=== PATIENT | female | born 1945 | race Caucasian/White ===

== ENCOUNTER → 2016-07-29 | Outpatient (REF) | payer MEDICARE, OTHER ==
[2016-07-29 11:57] LABS: ALBUMIN 3.5 GM/DL (3.2-5.2); ALBUMIN/GLOBULIN RATIO 1.09 (1.00-1.93); ALKALINE PHOSPHATASE 100 U/L (45-117); ALT/SGPT 20 U/L (12-78); ANION GAP 11 MEQ/L (8-16); AST/SGOT 19 U/L (15-37); BILIRUBIN,TOTAL 0.5 MG/DL (0.2-1.0); BLOOD UREA NITROGEN 12 MG/DL (7-18); CALCIUM LEVEL 8.8 MG/DL (8.8-10.2); CARBON DIOXIDE LEVEL 28 MEQ/L (21-32); CHLORIDE LEVEL 108 MEQ/L (98-107); CREATININE FOR GFR 0.68 MG/DL (0.55-1.02); GLOMERULAR FILTRATION RATE > 60.0 (>39); GLUCOSE, FASTING 92 MG/DL (83-110); POTASSIUM SERUM 4.5 MEQ/L (3.5-5.1); SODIUM LEVEL 147 MEQ/L (136-145); TOTAL PROTEIN 6.7 GM/DL (6.4-8.2)
== END ==
LOC: M SFHCPLAZ 09:12
PROVIDERS: ATTEND Internal Medicine
DX: J30.9 Allergic rhinitis, unspecified (principal); Z85.820 Personal history of malignant melanoma of skin

== ENCOUNTER → 2016-11-06 | Outpatient (CLI) | payer MEDICARE, OTHER ==
--- NOTE | 2016-11-06 13:14 | REPMRS ---
Patient History The patient states she has not had a clinical breast exam in over a year. Patient is postmenopausal, has history of cancer in the right breast at age 52, and has history of multiple skin cancers. Family history of breast cancer in paternal aunt and breast cancer in maternal grandmother at age 70. Malignant lumpectomy of the right breast, 1998. Radiation therapy of the right breast, 1998. Digital Woman Screen Mammo: November 06, 2016 - Exam #: [id number] Bilateral CC and MLO view(s) were taken. Technologist: Hayley Diaz, Technologist Prior study comparison: November 01, 2015, bilateral digital mammo screening bilat, performed at [facility]. October 17, 2014, bilateral digital mammo screening bilat, performed at [facility]. FINDINGS: The breast tissue is heterogeneously dense. This may lower the sensitivity of mammography. There has been no change in the appearance of the mammogram from the prior studies. There is a moderate amount of residual fibroglandular tissue which is fairly symmetric. There is no interval development of dominant mass, areas of architectural distortion, or clustered microcalcification typical of malignancy. ASSESSMENT: BI-RADS/ACR category 1 mammogram. Negative. Recommendation Routine screening mammogram in 1 year (for women over age 40). This mammogram was interpreted with the aid of an FDA-approved computer-aided dectection system. Electronically Signed By: Denys Rojas MD 11/06/16 1411
--- NOTE | 2016-11-12 15:21 | DEXA ---
AP SPINE L1 - L4 1.116 -0.6 1.1 LT FEMUR TOTAL 0.779 -1.8 -0.3 RT FEMUR TOTAL 0.834 -1.4 0.1 TOTAL BODY TOTAL OTHER DUAL FEMUR FRAX* ASSESSMENT Risk factors: History of adult fracture. 10 year probability of fracture Major osteoporotic fracture 16.7 % Hip fracture 2.7 % COMMENTS: Normal bone densitometry of the spine. There is low bone density of hips. The decreased density of the spine does represent a significant change. The decreased density of the left hip does represent a significant change. The decreased density of the right hip does represent a significant change. The density of the spine has increased 1.8% since the initial exam on 2000. The spine density has decreased 5.7% since the most recent exam on 06/10/2013. The density of the left hip has decreased 13.0% since the initial exam on 2000. The density of the left hip has decreased 5.6% since the most recent exam on . The density of the right hip has decreased 5.7% since the initial exam on 2000. The density of the right hip has decreased 2.7% since the most recent exam on . FOLLOW-UP: Recommendation for the next bone density exam: 2 years. GAVIN
== END ==
LOC: M WHC 10:43
PROVIDERS: ATTEND Internal Medicine
DX: Z12.31 Encounter for screening mammogram for malignant neoplasm of breast (principal); Z87.81 Personal history of (healed) traumatic fracture; Z85.3 Personal history of malignant neoplasm of breast; M85.80 Other specified disorders of bone density and structure, unspecified site; Z78.0 Asymptomatic menopausal state; Z80.3 Family history of malignant neoplasm of breast; Z92.3 Personal history of irradiation; Z85.828 Personal history of other malignant neoplasm of skin; Z13.820 Encounter for screening for osteoporosis
CPT/HCPCS: 77080; G0202

== ENCOUNTER → 2017-01-28 | Outpatient (REF) | payer MEDICARE, OTHER ==
[2017-01-28 11:18] LABS: MEAN CORPUSCULAR HGB CONC 32.9 g/dl (32.0-36.5); MEAN CORPUSCULAR VOLUME 94.2 fl (80.0-96.0); RED CELL DISTRIBUTION WIDTH 12.3 % (11.5-14.5)
[2017-01-28 11:45] LABS: ALBUMIN 3.7 GM/DL (3.2-5.2); ALBUMIN/GLOBULIN RATIO 1.09 (1.00-1.93); ALKALINE PHOSPHATASE 98 U/L (45-117); ALT/SGPT 29 U/L (12-78); ANION GAP 7 MEQ/L (8-16); AST/SGOT 16 U/L (15-37); BILIRUBIN,TOTAL 0.7 MG/DL (0.2-1.0); BLOOD UREA NITROGEN 9 MG/DL (7-18); CALCIUM LEVEL 9.2 MG/DL (8.8-10.2); CARBON DIOXIDE LEVEL 30 MEQ/L (21-32); CHLORIDE LEVEL 106 MEQ/L (98-107); CHOLESTEROL LEVEL 195 MG/DL (<200); GLOMERULAR FILTRATION RATE > 60.0 (>39); GLUCOSE, FASTING 84 MG/DL (83-110); POTASSIUM SERUM 4.4 MEQ/L (3.5-5.1); SODIUM LEVEL 143 MEQ/L (136-145); TOTAL PROTEIN 7.1 GM/DL (6.4-8.2); TRIGLYCERIDES LEVEL 129 MG/DL (<150)
== END ==
LOC: M SFHCPLAZ 08:48
PROVIDERS: ATTEND Internal Medicine
DX: Z85.3 Personal history of malignant neoplasm of breast (principal); E78.00 Pure hypercholesterolemia, unspecified; Z87.81 Personal history of (healed) traumatic fracture

== ENCOUNTER → 2017-02-10 | Outpatient (CLI) | payer MEDICARE, OTHER ==
--- NOTE | 2017-02-10 10:46 | REP ---
Complete abdominal ultrasound: There is a negative Casey's sign to transducer pressure. There is no cholelithiasis, gallbladder wall thickening or pericholecystic fluid. There is no intrahepatic or extrahepatic biliary duct dilatation, the common duct measures 4.3 mm in diameter. The hepatic parenchyma is homogeneous and unremarkable. The pancreas is obscured by bowel gas. The spleen is homogeneous and normal size measuring 8.1 cm in length. Occasional small calcified granulomas are identified in the spleen. There is no right or left renal hydronephrosis. The kidneys are normal size right kidney measuring 10 point 0 cm length and the left kidney 10.3 cm length. There are no renal calculi, masses or cysts. There are linear echogenic foci near the renal viviana bilaterally compatible with calcified atheroma. There is no abdominal aortic aneurysm. There is no ascites. Impression: Occasional splenic calcified granulomas. Calcified atheroma in the renal viviana bilaterally. Otherwise, negative complete abdominal ultrasound. Signed by Denys Jacobo MD 02/10/2017 10:37 A
== END ==
LOC: M RAD 07:20
PROVIDERS: ATTEND Internal Medicine
DX: R10.9 Unspecified abdominal pain (principal)

== ENCOUNTER → 2017-07-04 | Outpatient (REF) | payer MEDICARE, OTHER ==
[2017-07-04 12:58] LABS: ALBUMIN/GLOBULIN RATIO 1.14 (1.00-1.93); ALKALINE PHOSPHATASE 108 U/L (45-117); ALT/SGPT 26 U/L (12-78); ANION GAP 8 MEQ/L (8-16); AST/SGOT 21 U/L (7-37); BILIRUBIN,TOTAL 0.7 MG/DL (0.2-1.0); BLOOD UREA NITROGEN 9 MG/DL (7-18); CALCIUM LEVEL 9.3 MG/DL (8.8-10.2); CARBON DIOXIDE LEVEL 27 MEQ/L (21-32); CHLORIDE LEVEL 106 MEQ/L (98-107); CREATININE FOR GFR 0.69 MG/DL (0.55-1.30); GLOMERULAR FILTRATION RATE > 60.0 (>39); GLUCOSE, FASTING 85 MG/DL (70-100); MAGNESIUM LEVEL 2.5 MG/DL (1.8-2.4); POTASSIUM SERUM 4.5 MEQ/L (3.5-5.1); SODIUM LEVEL 141 MEQ/L (136-145); TOTAL PROTEIN 7.5 GM/DL (6.4-8.2)
== END ==
LOC: M SFHCPLAZ 09:18
DX: Z85.3 Personal history of malignant neoplasm of breast (principal); Z85.820 Personal history of malignant melanoma of skin; K21.9 Gastro-esophageal reflux disease without esophagitis; M85.80 Other specified disorders of bone density and structure, unspecified site
CPT/HCPCS: 83735

== ENCOUNTER → 2018-01-05 | Outpatient (REF) | payer MEDICARE, OTHER ==
[2018-01-05 12:34] LABS: ALBUMIN 3.7 GM/DL (3.2-5.2); ALBUMIN/GLOBULIN RATIO 1.09 (1.00-1.93); ALKALINE PHOSPHATASE 106 U/L (45-117); ALT/SGPT 30 U/L (12-78); ANION GAP 9 MEQ/L (8-16); AST/SGOT 18 U/L (7-37); BILIRUBIN,TOTAL 0.5 MG/DL (0.2-1.0); BLOOD UREA NITROGEN 10 MG/DL (7-18); CALCIUM LEVEL 8.9 MG/DL (8.8-10.2); CARBON DIOXIDE LEVEL 28 MEQ/L (21-32); CHLORIDE LEVEL 107 MEQ/L (98-107); CHOLESTEROL LEVEL 178 MG/DL (<200); CHOLESTEROL RISK RATIO 2.966 (<5); CREATININE FOR GFR 0.75 MG/DL (0.55-1.30); GLOMERULAR FILTRATION RATE > 60.0 (>39); GLUCOSE, FASTING 86 MG/DL (70-100); HDL CHOLESTEROL 60 MG/DL (>40); LDL CHOLESTEROL 98.6 MG/DL (<100); NON-HDL-C 118 MG/DL; POTASSIUM SERUM 4.3 MEQ/L (3.5-5.1); SODIUM LEVEL 144 MEQ/L (136-145); TOTAL PROTEIN 7.1 GM/DL (6.4-8.2); TRIGLYCERIDES LEVEL 97 MG/DL (<150)
== END ==
LOC: M SFHCPLAZ 08:40
DX: E78.00 Pure hypercholesterolemia, unspecified (principal); Z85.3 Personal history of malignant neoplasm of breast; Z85.820 Personal history of malignant melanoma of skin
CPT/HCPCS: 80053

== ENCOUNTER → 2018-02-06 | Outpatient (CLI) | payer MEDICARE, OTHER | LOC: M RAD 09:17 | DX: Z12.31 Encounter for screening mammogram for malignant neoplasm of breast (principal); N60.31 Fibrosclerosis of right breast; N60.32 Fibrosclerosis of left breast; R92.1 Mammographic calcification found on diagnostic imaging of breast | CPT/HCPCS: 77067 ==

== ENCOUNTER → 2019-01-21 | Outpatient (REF) | payer MEDICARE, OTHER ==
[2019-01-21 13:37] LABS: ALBUMIN 3.6 GM/DL (3.2-5.2); ALT/SGPT 22 U/L (12-78); BILIRUBIN,TOTAL 0.5 MG/DL (0.2-1.0); BLOOD UREA NITROGEN 11 MG/DL (7-18); CALCIUM LEVEL 9.5 MG/DL (8.8-10.2); CARBON DIOXIDE LEVEL 29 MEQ/L (21-32); CHLORIDE LEVEL 107 MEQ/L (98-107); CHOLESTEROL LEVEL 177 MG/DL (<200); CHOLESTEROL RISK RATIO 3.277 (<5); CREATININE FOR GFR 0.72 MG/DL (0.55-1.30); GLOMERULAR FILTRATION RATE > 60.0 (>39); GLUCOSE, FASTING 93 MG/DL (70-100); HDL CHOLESTEROL 54 MG/DL (>40); LDL CHOLESTEROL 101 MG/DL (<100); MAGNESIUM LEVEL 2.3 MG/DL (1.8-2.4); NON-HDL-C 123 MG/DL; POTASSIUM SERUM 4.2 MEQ/L (3.5-5.1); SODIUM LEVEL 142 MEQ/L (136-145); TOTAL 25(OH) VITAMIN D 42.6 NG/ML (30.0-100.0); TOTAL PROTEIN 6.7 GM/DL (6.4-8.2); TRIGLYCERIDES LEVEL 112 MG/DL (<150)
== END ==
LOC: M SFHCPLAZ 08:41
PROVIDERS: ATTEND Internal Medicine
DX: E78.00 Pure hypercholesterolemia, unspecified (principal); K21.9 Gastro-esophageal reflux disease without esophagitis; M85.80 Other specified disorders of bone density and structure, unspecified site

== ENCOUNTER → 2019-02-15 | Outpatient (CLI) | payer MEDICARE, OTHER ==
--- NOTE | 2019-02-15 10:52 | REPMRS ---
Patient History The patient states she has not had a clinical breast exam in over a year. Family history of breast cancer at age 70 in maternal grandmother, breast cancer in paternal aunt. Malignant lumpectomy of the right breast, 1998. Radiation therapy of the right breast, 1998. 3D TOMOSYNTHESIS WAS PERFORMED. Digital Mammo Screening Bilat: February 15, 2019 - Exam #: [id number] Bilateral CC and MLO view(s) were taken. Technologist: Kiah Quiroga, Technologist Prior study comparison: February 06, 2018, bilateral digital mammo screening bilat performed at [facility]. November 06, 2016, digital woman screen mammo, performed at [facility]. FINDINGS: The breast tissue is heterogeneously dense. This may lower the sensitivity of mammography. There has been no change in the appearance of the mammogram from the prior studies. There is a moderate amount of residual fibroglandular tissue which is fairly symmetric. There is no interval development of dominant mass, areas of architectural distortion, or clustered microcalcification typical of malignancy. Assessment: BI-RADS/ACR category 1 mammogram. Negative Mammogram. Recommendation Routine screening mammogram in 1 year (for women over age 40). This mammogram was interpreted with the aid of an FDA-approved computer-aided dectection system. Electronically Signed By: Denys Rojas MD 02/15/19 [id number]
== END ==
LOC: M RAD 09:18
PROVIDERS: ATTEND Internal Medicine
DX: Z12.31 Encounter for screening mammogram for malignant neoplasm of breast (principal); Z92.3 Personal history of irradiation

== ENCOUNTER → 2019-07-29 | Outpatient (REF) | payer MEDICARE, OTHER ==
[2019-07-29 12:38] LABS: HEMATOCRIT 42.5 % (36.0-47.0); HEMOGLOBIN 13.8 g/dl (12.0-15.5); MEAN CORPUSCULAR HEMOGLOBIN 30.8 pg (27.0-33.0); MEAN CORPUSCULAR HGB CONC 32.5 g/dl (32.0-36.5); MEAN CORPUSCULAR VOLUME 94.9 fl (80.0-96.0); PLATELET COUNT, AUTOMATED 302 10^3/uL (150-450); RED BLOOD COUNT 4.48 10^6/uL (4.00-5.40); WHITE BLOOD COUNT 7.3 10^3/uL (4.0-10.0)
[2019-07-29 12:41] LABS: ALBUMIN 3.7 GM/DL (3.2-5.2); ALT/SGPT 25 U/L (12-78); BILIRUBIN,TOTAL 0.5 MG/DL (0.2-1.0); BLOOD UREA NITROGEN 11 MG/DL (7-18); C REACTIVE PROTEIN QUANTITATIV < 0.30 MG/DL (0.00-0.30); CARBON DIOXIDE LEVEL 30 MEQ/L (21-32); CHLORIDE LEVEL 108 MEQ/L (98-107); CHOLESTEROL LEVEL 194 MG/DL (<200); CREATININE FOR GFR 0.73 MG/DL (0.55-1.30); GLOMERULAR FILTRATION RATE > 60.0 (>39); GLUCOSE, FASTING 93 MG/DL (70-100); HDL CHOLESTEROL 50 MG/DL (>40); LDL CHOLESTEROL 113 MG/DL (<100); NON-HDL-C 144 MG/DL; POTASSIUM SERUM 4.4 MEQ/L (3.5-5.1); SODIUM LEVEL 141 MEQ/L (136-145); TOTAL PROTEIN 7.1 GM/DL (6.4-8.2); TRIGLYCERIDES LEVEL 153 MG/DL (<150)
[2019-07-29 13:01] LABS: ERYTHROCYTE SEDIMENTATION RATE 23 mm/hr (0-30)
== END ==
LOC: M SFHCPLAZ 08:37
PROVIDERS: ATTEND Internal Medicine
DX: J30.9 Allergic rhinitis, unspecified (principal); E78.00 Pure hypercholesterolemia, unspecified; M79.7 Fibromyalgia

== ENCOUNTER → 2020-02-01 | Outpatient (CLI) | payer MEDICARE, OTHER ==
[2020-02-01 13:31] LABS: ALBUMIN 3.8 GM/DL (3.2-5.2); ALT/SGPT 26 U/L (12-78); BILIRUBIN,TOTAL 0.6 MG/DL (0.2-1.0); BLOOD UREA NITROGEN 15 MG/DL (7-18); CALCIUM LEVEL 9.4 MG/DL (8.8-10.2); CARBON DIOXIDE LEVEL 29 MEQ/L (21-32); CHLORIDE LEVEL 109 MEQ/L (98-107); CHOLESTEROL LEVEL 200 MG/DL (<200); CHOLESTEROL RISK RATIO 3.508 (<5); CREATININE FOR GFR 0.74 MG/DL (0.55-1.30); GLOMERULAR FILTRATION RATE > 60.0 (>39); GLUCOSE, FASTING 89 MG/DL (70-100); HDL CHOLESTEROL 57 MG/DL (>40); LDL CHOLESTEROL 113 MG/DL (<100); NON-HDL-C 143 MG/DL; POTASSIUM SERUM 4.7 MEQ/L (3.5-5.1); SODIUM LEVEL 143 MEQ/L (136-145); TOTAL PROTEIN 7.2 GM/DL (6.4-8.2); TRIGLYCERIDES LEVEL 150 MG/DL (<150)
== END ==
LOC: M PLALAB 08:45
PROVIDERS: ATTEND Internal Medicine
DX: E78.00 Pure hypercholesterolemia, unspecified (principal)

== ENCOUNTER → 2020-03-22 | Outpatient (CLI) | payer MEDICARE, OTHER ==
--- NOTE | 2020-03-22 11:14 | REPMRS ---
Patient History The patient states she has not had a clinical breast exam in over a year. Family history of breast cancer at age 70 in maternal grandmother, breast cancer in paternal aunt. Malignant lumpectomy of the right breast, 1998. Radiation therapy of the right breast, 1998. 3D TOMOSYNTHESIS WAS PERFORMED. Volpara breast density c. Digital Woman Screen Mammo: March 22, 2020 - Exam #: [id number] Bilateral CC and MLO view(s) were taken. Technologist: RT Giovany Prior study comparison: February 15, 2019, bilateral digital mammo screening bilat, performed at [facility]. February 06, 2018, bilateral digital mammo screening bilat, performed at [facility]. FINDINGS: The breast tissue is heterogeneously dense. This may lower the sensitivity of mammography. There has been no change in the appearance of the mammogram from the prior studies. There is a moderate amount of residual fibroglandular tissue which is fairly symmetric. There is no interval development of dominant mass, areas of architectural distortion, or clustered microcalcification typical of malignancy. Assessment: BI-RADS/ACR category 1 mammogram. Negative Mammogram. Recommendation Routine screening mammogram in 1 year (for women over age 40). This mammogram was interpreted with the aid of an FDA-approved computer-aided dectection system. Electronically Signed By: Denys Rojas MD 03/22/20 [id number]
--- NOTE | 2020-03-22 12:24 | DEXA ---
INDICATION: M85.80/OSTEOPENIA. COMPARISON: 11/05/2016 and 05/23/2000. TECHNIQUE: Bone density was measured using dual-energy x-ray absorptiometry (DEXA). FINDINGS: AP SPINE L1-L4 BMD 1.135 g/cm2 Young Adult T-Score -0.5 Age Matched Z-Score 1.3. LT FEMUR, TOTAL BMD 0.798 g/cm2 Young Adult T-Score -1.7 Age Matched Z-Score 0.0. LT NECK BMD 0.789 g/cm2 Young Adult T-Score -1.8 Age Matched Z-Score 0.1. RT FEMUR, TOTAL BMD 0.831 g/cm2 Young Adult T-Score -1.4 Age Matched Z-Score 0.3. RT NECK BMD 0.774 g/cm2 Young Adult T-Score -1.9 Age Matched Z-Score 0.0. IMPRESSION: There is normal bone density of the spine. There is low bone density of the left hip. There is low bone density of the right hip. The density of the spine has increased 3.6% since the initial exam on 05/23/2000. The density of the spine increased 1.7% since most recent exam on 11/06/2016. The density of the left hip has decreased 10.8% since initial exam on 05/23/2000. The density of the left hip has increased 2.4% since most recent exam on 11/06/2016. The density of the right hip has decreased 6.0% since the initial exam on 05/23/2000. The density of the right hip has decreased 0.4% since the most recent exam on 11/06/2016. FOLLOW-UP: Recommendation for the next bone density exam: 2 years. <Electronically signed by Denys Rojas > 03/22/20 [id number]
== END ==
LOC: M WHC 09:16
PROVIDERS: ATTEND Internal Medicine
DX: Z12.31 Encounter for screening mammogram for malignant neoplasm of breast (principal); M81.0 Age-related osteoporosis without current pathological fracture

== ENCOUNTER → 2020-05-04 | Outpatient (CLI) | payer SELFPAY | LOC: M LABSMTC 13:39 | PROVIDERS: ATTEND Pediatrics | DX: Z20.828 Contact with and (suspected) exposure to other viral communicable diseases (principal) ==

== ENCOUNTER → 2020-07-05 | Outpatient (REF) | payer MEDICARE, OTHER ==
[2020-07-05 13:21] LABS: BASO # 0.1 10^3/uL (0.0-0.2); BASO % 1.4 % (0.0-1.0); EOS # 0.3 10^3/uL (0.0-0.5); HEMATOCRIT 41.9 % (36.0-47.0); HEMOGLOBIN 13.1 g/dl (12.0-15.5); LYMPH # 1.7 10^3/uL (1.5-5.0); MEAN CORPUSCULAR HEMOGLOBIN 29.7 pg (27.0-33.0); MEAN CORPUSCULAR HGB CONC 31.3 g/dl (32.0-36.5); MONO # 0.5 10^3/uL (0.0-0.8); MONO % 8.5 % (2.0-8.0); NEUTROPHILS # 3.5 10^3/uL (1.5-8.5); NEUTROPHILS % 56.9 % (36.0-66.0); PLATELET COUNT, AUTOMATED 300 10^3/uL (150-450); RED BLOOD COUNT 4.41 10^6/uL (4.00-5.40); WHITE BLOOD COUNT 6.2 10^3/uL (4.0-10.0)
[2020-07-05 14:06] LABS: ALBUMIN 3.7 GM/DL (3.2-5.2); ALT/SGPT 28 U/L (12-78); BILIRUBIN,TOTAL 0.5 MG/DL (0.2-1.0); BLOOD UREA NITROGEN 11 MG/DL (7-18); CALCIUM LEVEL 9.2 MG/DL (8.8-10.2); CARBON DIOXIDE LEVEL 28 MEQ/L (21-32); CHLORIDE LEVEL 106 MEQ/L (98-107); CHOLESTEROL LEVEL 195 MG/DL (<200); CHOLESTEROL RISK RATIO 3.611 (<5); CREATININE FOR GFR 0.64 MG/DL (0.55-1.30); GLOMERULAR FILTRATION RATE > 60.0 (>39); GLUCOSE, FASTING 84 MG/DL (70-100); HDL CHOLESTEROL 54 MG/DL (>40); LDL CHOLESTEROL 117 MG/DL (<100); NON-HDL-C 141 MG/DL; POTASSIUM SERUM 4.5 MEQ/L (3.5-5.1); SODIUM LEVEL 141 MEQ/L (136-145); TOTAL PROTEIN 7.1 GM/DL (6.4-8.2); TRIGLYCERIDES LEVEL 118 MG/DL (<150)
== END ==
LOC: M PLALAB 08:58
PROVIDERS: ATTEND Internal Medicine
DX: E78.00 Pure hypercholesterolemia, unspecified (principal); Z85.3 Personal history of malignant neoplasm of breast; Z11.59 Encounter for screening for other viral diseases
CPT/HCPCS: 36415; 80053; 80061; 84443; 85025; G0472

== ENCOUNTER → 2020-07-25 | Outpatient (CLI) | payer MEDICARE, OTHER ==
--- NOTE | 2020-07-25 09:08 | REP ---
INDICATION: FLANK PAIN COMPARISON: None TECHNIQUE: Real time anderson scale ultrasound examination using curved array transducer. FINDINGS: The kidneys are normal in reniform shape and demonstrate increased central sinus fat along with renal vascular calcifications consistent with chronic age-related medical renal disease. No hydronephrosis, nephrolithiasis, cystic or renal mass lesion appreciated. Right kidney measures 10.5 x 6.1 x 5.0 cm. Left kidney measures 10.9 x 5.9 x 6.0 cm. The bladder is grossly unremarkable. IMPRESSION: 1. Evidence for chronic medical renal disease. 2. No hydronephrosis. <Electronically signed by Sharad Fernandes > 07/25/20 0905
== END ==
LOC: M RAD 08:21
PROVIDERS: ATTEND Internal Medicine
DX: R10.9 Unspecified abdominal pain (principal)

== ENCOUNTER → 2020-11-28 | Outpatient (CLI) | payer MEDICARE, OTHER | LOC: M WHC 13:14 | PROVIDERS: ATTEND Internal Medicine | DX: N64.4 Mastodynia (principal) | CPT/HCPCS: 77066; G0279 ==

== ENCOUNTER → 2020-12-12 | Outpatient (CLI) | payer MEDICARE, OTHER ==
[2020-12-12 13:56] LABS: BLOOD UREA NITROGEN 11 MG/DL (7-18); CALCIUM LEVEL 9.1 MG/DL (8.8-10.2); CARBON DIOXIDE LEVEL 29 MEQ/L (21-32); CHLORIDE LEVEL 108 MEQ/L (98-107); CREATININE FOR GFR 0.68 MG/DL (0.55-1.30); GLOMERULAR FILTRATION RATE > 60.0 (>39); GLUCOSE, FASTING 87 MG/DL (70-100); POTASSIUM SERUM 4.5 MEQ/L (3.5-5.1); SODIUM LEVEL 142 MEQ/L (136-145)
== END ==
LOC: M PLALAB 09:38
PROVIDERS: ATTEND Internal Medicine
DX: Z85.3 Personal history of malignant neoplasm of breast (principal)

== ENCOUNTER → 2020-12-28 | Outpatient (REF) | payer MEDICARE, OTHER ==
[2020-12-28 12:13] LABS: ALBUMIN 3.6 GM/DL (3.2-5.2); ALT/SGPT 24 U/L (12-78); BILIRUBIN,TOTAL 0.6 MG/DL (0.2-1.0); BLOOD UREA NITROGEN 12 MG/DL (7-18); CALCIUM LEVEL 8.7 MG/DL (8.8-10.2); CARBON DIOXIDE LEVEL 28 MEQ/L (21-32); CHLORIDE LEVEL 113 MEQ/L (98-107); CHOLESTEROL LEVEL 189 MG/DL (<200); CHOLESTEROL RISK RATIO 3.566 (<5); GLOMERULAR FILTRATION RATE > 60.0 (>39); GLUCOSE, FASTING 93 MG/DL (70-100); HDL CHOLESTEROL 53 MG/DL (>40); LDL CHOLESTEROL 114 MG/DL (<100); NON-HDL-C 136 MG/DL; POTASSIUM SERUM 4.4 MEQ/L (3.5-5.1); SODIUM LEVEL 143 MEQ/L (136-145); TOTAL PROTEIN 6.7 GM/DL (6.4-8.2); TRIGLYCERIDES LEVEL 111 MG/DL (<150)
== END ==
LOC: M SFHCCLAY 07:51
PROVIDERS: ATTEND Internal Medicine
DX: E78.00 Pure hypercholesterolemia, unspecified (principal)

== ENCOUNTER → 2020-12-29 | Outpatient (CLI) | payer MEDICARE, OTHER ==
[~2020-12-29] MED LIST: PROHANCE 279.3MG/ML 15ML VIAL As Ordered ONE
--- NOTE | 2020-12-29 17:31 | REP ---
INDICATION: HX OF BREAST CA, BREAST TENDERNESS, ABN MAMMO. COMPARISON: Comparison mammography November 28, 2020. TECHNIQUE: Three Neisha MRI imaging was performed with a dedicated breast coil. Axial, coronal, and sagittal T1 and T2 weighted scans were obtained with and without fat saturation in the usual fashion. The study includes dynamically acquired post gadolinium-enhanced imaging with image subtraction. Maximum intensity projection and multi planar reformation imaging is included as well. This study is interpreted with the aid of [employer], an FDA approved computer aided detection (CAD) software program, on a dedicated breast MRI workstation. The gadolinium enhancement dose is 14 mL of intravenous ProHance. FINDINGS: There is a mild to moderate amount of fibroglandular tissue bilaterally corresponding with the mammographic pattern. There is minimal background parenchymal enhancement. There is no evidence of axillary lymphadenopathy or significant breast cystic change. High-resolution pre and post-contrast T1 and T2 weighted scans show no suspicious morphologic abnormality in either breast. Dynamically acquired sequential postcontrast images show no suspicious area of enhancement and washout kinetics in either breast to suggest malignancy. Subtraction images show no additional abnormality. The right breast is somewhat smaller than the left and there is post treatment fibrosis and contour deformity laterally. IMPRESSION: BI-RADS category 2 benign bilateral breast MRI findings. <Electronically signed by Martin Skinner > 12/29/20 [id number]
== END ==
LOC: M RAD 13:31
PROVIDERS: ATTEND Internal Medicine
DX: Z82.3 Family history of stroke (principal); N64.4 Mastodynia; R92.8 Other abnormal and inconclusive findings on diagnostic imaging of breast
CPT/HCPCS: A9576; C8908

== ENCOUNTER → 2021-03-21 | Outpatient (REF) | payer MEDICARE, OTHER | LOC: M LAB REF 19:22 | PROVIDERS: ATTEND Physician Assistant | DX: C44.329 Squamous cell carcinoma of skin of other parts of face (principal); D23.39 Other benign neoplasm of skin of other parts of face; D04.4 Carcinoma in situ of skin of scalp and neck | CPT/HCPCS: 11102; 11103; 17000; 17003; 88305; G0463 ==

== ENCOUNTER → 2021-07-04 | Outpatient (CLI) | payer MEDICARE, OTHER ==
[2021-07-04 10:30] LABS: BASO # 0.1 10^3/uL (0.0-0.2); BASO % 1.9 % (0.0-1.0); EOS # 0.2 10^3/uL (0.0-0.5); EOS % 3.3 % (0.0-3.0); LYMPH # 2.1 10^3/uL (1.5-5.0); LYMPH % 29.5 % (24.0-44.0); MEAN CORPUSCULAR HEMOGLOBIN 30.3 pg (27.0-33.0); MEAN CORPUSCULAR HGB CONC 31.8 g/dl (32.0-36.5); MEAN CORPUSCULAR VOLUME 95.2 fl (80.0-96.0); MONO # 0.7 10^3/uL (0.0-0.8); NEUTROPHILS % 55.9 % (36.0-66.0); PLATELET COUNT, AUTOMATED 317 10^3/uL (150-450); RED BLOOD COUNT 4.62 10^6/uL (4.00-5.40); WHITE BLOOD COUNT 7.2 10^3/uL (4.0-10.0)
[2021-07-04 10:55] LABS: ALT/SGPT 27 U/L (12-78); BILIRUBIN,TOTAL 0.5 MG/DL (0.2-1.0); BLOOD UREA NITROGEN 10 MG/DL (7-18); CALCIUM LEVEL 9.6 MG/DL (8.8-10.2); CARBON DIOXIDE LEVEL 28 MEQ/L (21-32); CHLORIDE LEVEL 110 MEQ/L (98-107); CHOLESTEROL LEVEL 188 MG/DL (<200); CHOLESTEROL RISK RATIO 3.418 (<5); CREATININE FOR GFR 0.69 MG/DL (0.55-1.30); GLOMERULAR FILTRATION RATE > 60.0 (>39); GLUCOSE, FASTING 93 MG/DL (70-100); HDL CHOLESTEROL 55 MG/DL (>40); LDL CHOLESTEROL 107 MG/DL (<100); NON-HDL-C 133 MG/DL; POTASSIUM SERUM 4.8 MEQ/L (3.5-5.1); SODIUM LEVEL 145 MEQ/L (136-145); TOTAL PROTEIN 7.5 GM/DL (6.4-8.2); TRIGLYCERIDES LEVEL 132 MG/DL (<150)
== END ==
LOC: M PLALAB 09:05
PROVIDERS: ATTEND Internal Medicine
DX: E78.00 Pure hypercholesterolemia, unspecified (principal)

== ENCOUNTER → 2021-08-02 | Outpatient (CLI) | payer MEDICARE, OTHER ==
[2021-08-02 14:13] LABS: C REACTIVE PROTEIN QUANTITATIV < 0.30 MG/DL (0.00-0.30); RHEUMATOID FACTOR QUANT < 10.0 IU/ML (<15.0); URIC ACID 2.8 MG/DL (2.6-6.0)
[2021-08-03 11:08] LABS: ANTINUCLEAR ANTIBODIES DIRECT Negative (Negative)
== END ==
LOC: M PLALAB 09:44
PROVIDERS: ATTEND Physician Assistant
DX: M79.642 Pain in left hand (principal)

== ENCOUNTER → 2022-01-01 | Outpatient (REF) | payer MEDICARE, OTHER ==
[2022-01-01 13:53] LABS: ALBUMIN 3.7 GM/DL (3.2-5.2); ALT/SGPT 25 U/L (12-78); BILIRUBIN,TOTAL 0.6 MG/DL (0.2-1.0); BLOOD UREA NITROGEN 12 MG/DL (7-18); CALCIUM LEVEL 9.4 MG/DL (8.8-10.2); CARBON DIOXIDE LEVEL 28 MEQ/L (21-32); CHLORIDE LEVEL 109 MEQ/L (98-107); CREATININE FOR GFR 0.67 MG/DL (0.55-1.30); GLOMERULAR FILTRATION RATE > 60.0 (>39); GLUCOSE, FASTING 93 MG/DL (70-100); POTASSIUM SERUM 4.3 MEQ/L (3.5-5.1); SODIUM LEVEL 140 MEQ/L (136-145); TOTAL PROTEIN 6.8 GM/DL (6.4-8.2)
[2022-01-01 14:26] LABS: TOTAL 25(OH) VITAMIN D 48.1 NG/ML (30.0-100.0)
== END ==
LOC: M SFHCCLAY 07:31
PROVIDERS: ATTEND Internal Medicine Hematology
DX: Z85.3 Personal history of malignant neoplasm of breast (principal); M85.80 Other specified disorders of bone density and structure, unspecified site

== ENCOUNTER → 2022-02-27 | Outpatient (REF) | payer MEDICARE, OTHER | LOC: M SFHCDERM 14:00 | PROVIDERS: ATTEND Physician Assistant | DX: L82.1 Other seborrheic keratosis (principal) ==

== ENCOUNTER → 2022-03-11 | Outpatient (CLI) | payer MEDICARE, OTHER | LOC: M WHC 13:04 | PROVIDERS: ATTEND Internal Medicine Hematology | DX: Z12.31 Encounter for screening mammogram for malignant neoplasm of breast (principal) ==

== ENCOUNTER → 2022-03-26 | Outpatient (CLI) | payer MEDICARE, OTHER | LOC: M WHC 09:50 | PROVIDERS: ATTEND Internal Medicine Hematology | DX: Z12.31 Encounter for screening mammogram for malignant neoplasm of breast (principal) | CPT/HCPCS: 76642; 77065; G0279 ==

== ENCOUNTER → 2022-05-07 | Outpatient (CLI) | payer MEDICARE, OTHER ==
[~2022-05-07] MED LIST changes: +ACET325C5 PO; +ALPH200C6 PO; +B-12100010 PO; +CETI10CA2 PO; +CINN500C15 PO; +CO Q1CAP2 PO; +DICY10AM IM; +FAMO20TA PO; +GNP1000C11 PO; +LIPI10TA PO; +MAGN400C PO; +MELO15TA28 PO; +MIRA3350 PO; +NEXI40CA PO; +OPTIVAR; +OSTE5TAB PO; +PHILCAP4 PO; -PROHANCE 279.3MG/ML 15ML VIAL As Ordered ONE; +REFRSOL OP; +SING10TA32 PO; +VITMTA PO; +[UNRECOGNIZED DRUG - OTHER]; +[UNRECOGNIZED DRUG - REMARK]
== END ==
LOC: M PLALAB 08:43
PROVIDERS: ATTEND Surgery
DX: Z01.89 Encounter for other specified special examinations (principal)

== ENCOUNTER → 2022-05-08 | Outpatient (CLI) | payer MEDICARE, OTHER ==
[2022-05-08 09:13] VITALS: BP 142/84
== END ==
LOC: M WHCPRO 07:43
PROVIDERS: ATTEND Surgery
DX: R92.8 Other abnormal and inconclusive findings on diagnostic imaging of breast (principal); N63.11 Unspecified lump in the right breast, upper outer quadrant
CPT/HCPCS: 19083; 77065; 88305; G0279

== ENCOUNTER → 2022-06-20 | Outpatient (REF) | payer MEDICARE, OTHER ==
[2022-06-20 12:25] LABS: HEMATOCRIT 41.7 % (36.0-47.0); HEMOGLOBIN 13.4 g/dl (12.0-15.5); MEAN CORPUSCULAR HEMOGLOBIN 30.5 pg (27.0-33.0); MEAN CORPUSCULAR HGB CONC 32.1 g/dl (32.0-36.5); MEAN CORPUSCULAR VOLUME 94.8 fl (80.0-96.0); PLATELET COUNT, AUTOMATED 306 10^3/uL (150-450); WHITE BLOOD COUNT 7.3 10^3/uL (4.0-10.0)
[2022-06-20 12:26] LABS: ALBUMIN 3.7 G/DL (3.2-5.2); ALKALINE PHOSPHATASE 101 U/L (46-116); ALT/SGPT 25 U/L (7.0-40); AST/SGOT 22 U/L (<34); BILIRUBIN,TOTAL 0.6 MG/DL (0.3-1.2); BLOOD UREA NITROGEN 12 MG/DL (9-23); CALCIUM LEVEL 8.9 MG/DL (8.3-10.6); CARBON DIOXIDE LEVEL 30 MMOL/L (20-31); CHLORIDE LEVEL 107 MMOL/L (98-107); CHOLESTEROL LEVEL 179 MG/DL (<200); CHOLESTEROL RISK RATIO 3.78 (<5); GLOMERULAR FILTRATION RATE > 60.0 (>39); GLUCOSE, FASTING 98 MG/DL (74-106); HDL CHOLESTEROL 47.3 MG/DL (>40); LDL CHOLESTEROL 102.7 MG/DL (<100); NON-HDL-C 132 MG/DL; POTASSIUM SERUM 4.4 MMOL/L (3.5-5.1); SODIUM LEVEL 143 MMOL/L (136-145); TOTAL PROTEIN 7.1 G/DL (5.7-8.2); TRIGLYCERIDES LEVEL 145 MG/DL (<150)
[2022-06-20 12:27] LABS: C REACTIVE PROTEIN QUANTITATIV < 0.40 MG/DL (<1.0)
[2022-06-20 12:55] LABS: CREATININE, URINE 78.3 MG/DL; MAU/CREAT RATIO 8.9 MCG/MG (0.0-30.0)
[2022-06-20 14:57] LABS: FREE T4 0.94 NG/DL (0.89-1.76); THYROID STIMULATING HORMONE 2.185 uIU/ML (0.55-4.78); VITAMIN B12 LEVEL 648 PG/ML (211-911)
[2022-06-20 18:23] LABS: HEMOGLOBIN A1c 5.4 % (4.0-6.0)
== END ==
LOC: M SFHCPLAZ 09:14
PROVIDERS: ATTEND Internal Medicine Hematology
DX: E78.00 Pure hypercholesterolemia, unspecified (principal)

== ENCOUNTER → 2022-07-18 | Outpatient (CLI) | payer MEDICARE, OTHER ==
[~2022-07-18] MED LIST changes: +MONT-5 PO; -SING10TA32 PO
== END ==
LOC: M WHC 10:31
PROVIDERS: ATTEND Internal Medicine Hematology
DX: M81.0 Age-related osteoporosis without current pathological fracture (principal)

== ENCOUNTER → 2022-10-29 | Outpatient (CLI) | payer MEDICARE, OTHER ==
[~2022-10-29] MED LIST changes: -PHILCAP4 PO; +PHILLIPS COLON1 CAP PO
== END ==
LOC: M WHC 11:03
PROVIDERS: ATTEND Surgery
DX: N64.1 Fat necrosis of breast (principal)
CPT/HCPCS: 76642; 77065; G0279

== ENCOUNTER → 2022-12-24 | Outpatient (REF) | payer MEDICARE, OTHER ==
[2022-12-24 12:15] LABS: HEMOGLOBIN 12.9 g/dl (12.0-15.5); MEAN CORPUSCULAR HGB CONC 32.3 g/dl (32.0-36.5); PLATELET COUNT, AUTOMATED 302 10^3/uL (150-450); WHITE BLOOD COUNT 6.7 10^3/uL (4.0-10.0)
[2022-12-24 12:39] LABS: CREATININE, URINE 69.1 MG/DL; MAU/CREAT RATIO 5.7 MCG/MG (0.0-30.0)
[2022-12-24 12:49] LABS: ALBUMIN 3.7 G/DL (3.2-5.2); ALKALINE PHOSPHATASE 105 U/L (46-116); ALT/SGPT 19 U/L (7.0-40); AST/SGOT 16 U/L (<34); BILIRUBIN,TOTAL 0.6 MG/DL (0.3-1.2); BLOOD UREA NITROGEN 14 MG/DL (9-23); CALCIUM LEVEL 9.1 MG/DL (8.3-10.6); CARBON DIOXIDE LEVEL 28 MMOL/L (20-31); CHLORIDE LEVEL 109 MMOL/L (98-107); CHOLESTEROL LEVEL 180 MG/DL (<200); CHOLESTEROL RISK RATIO 3.76 (<5); CREATININE FOR GFR 0.72 MG/DL (0.55-1.30); GLOMERULAR FILTRATION RATE > 60.0 (>39); GLUCOSE, FASTING 98 MG/DL (74-106); HDL CHOLESTEROL 47.8 MG/DL (>40); LDL CHOLESTEROL 105.4 MG/DL (<100); NON-HDL-C 132.2 MG/DL; POTASSIUM SERUM 4.4 MMOL/L (3.5-5.1); SODIUM LEVEL 141 MMOL/L (136-145); TOTAL PROTEIN 6.7 G/DL (5.7-8.2); TRIGLYCERIDES LEVEL 134 MG/DL (<150)
[2022-12-24 12:50] LABS: C REACTIVE PROTEIN QUANTITATIV < 0.40 MG/DL (<1.0)
[2022-12-24 12:52] LABS: FREE T4 0.98 NG/DL (0.89-1.76); VITAMIN B12 LEVEL 763 PG/ML (211-911)
[2022-12-24 12:53] LABS: TOTAL 25(OH) VITAMIN D 58.2 NG/ML (20.0-100.0)
[2022-12-24 12:54] LABS: HEMOGLOBIN A1c 5.6 % (4.0-6.0)
== END ==
LOC: M SFHCPLAZ 07:54
PROVIDERS: ATTEND Internal Medicine Hematology
DX: E78.00 Pure hypercholesterolemia, unspecified (principal)

== ENCOUNTER → 2023-01-15 | Outpatient (REF) | payer MEDICARE, OTHER | LOC: M SFHCDERM 14:17 | PROVIDERS: ATTEND Physician Assistant | DX: L57.8 Other skin changes due to chronic exposure to nonionizing radiation (principal); L57.0 Actinic keratosis; L81.4 Other melanin hyperpigmentation ==

== ENCOUNTER → 2023-05-05 | Outpatient (CLI) | payer MEDICARE, OTHER | LOC: M SLEEP HO 10:20 | PROVIDERS: ATTEND Internal Medicine Cardiovascular Disease | DX: I27.23 Pulmonary hypertension due to lung diseases and hypoxia (principal) ==

== ENCOUNTER → 2023-07-09 | Outpatient (REF) | payer MEDICARE, OTHER ==
[2023-07-09 12:04] LABS: HEMATOCRIT 42.9 % (36.0-47.0); HEMOGLOBIN 13.9 g/dl (12.0-15.5); MEAN CORPUSCULAR HEMOGLOBIN 30.8 pg (27.0-33.0); MEAN CORPUSCULAR HGB CONC 32.4 g/dl (32.0-36.5); MEAN CORPUSCULAR VOLUME 94.9 fl (80.0-96.0); PLATELET COUNT, AUTOMATED 298 10^3/uL (150-450); RED BLOOD COUNT 4.52 10^6/uL (4.00-5.40); WHITE BLOOD COUNT 6.9 10^3/uL (4.0-10.0)
[2023-07-09 12:32] LABS: CREATININE, URINE 66.4 MG/DL; MALB URINE SIEMENS < 3.0 MG/L; MAU/CREAT RATIO 4.5 MCG/MG (0.0-30.0)
[2023-07-09 12:33] LABS: C REACTIVE PROTEIN QUANTITATIV < 0.40 MG/DL (<1.0)
[2023-07-09 12:34] LABS: ALBUMIN 3.9 G/DL (3.2-5.2); ALKALINE PHOSPHATASE 107 U/L (46-116); ALT/SGPT 19 U/L (7.0-40); AST/SGOT 17 U/L (<34); BILIRUBIN,TOTAL 0.6 MG/DL (0.3-1.2); BLOOD UREA NITROGEN 14 MG/DL (9-23); CALCIUM LEVEL 9.4 MG/DL (8.3-10.6); CARBON DIOXIDE LEVEL 31 MMOL/L (20-31); CHLORIDE LEVEL 105 MMOL/L (98-107); CHOLESTEROL LEVEL 186 MG/DL (<200); CHOLESTEROL RISK RATIO 3.74 (<5); CREATININE FOR GFR 0.69 MG/DL (0.55-1.30); FREE T4 0.98 NG/DL (0.89-1.76); GLOMERULAR FILTRATION RATE > 60.0 (>39); GLUCOSE, FASTING 97 MG/DL (74-106); HDL CHOLESTEROL 49.7 MG/DL (>40); LDL CHOLESTEROL 107.9 MG/DL (<100); NON-HDL-C 136.3 MG/DL; POTASSIUM SERUM 4.4 MMOL/L (3.5-5.1); SODIUM LEVEL 141 MMOL/L (136-145); TOTAL PROTEIN 7.2 G/DL (5.7-8.2); TRIGLYCERIDES LEVEL 142 MG/DL (<150); VITAMIN B12 LEVEL 870 PG/ML (211-911)
[2023-07-09 12:35] LABS: THYROID STIMULATING HORMONE 3.099 uIU/ML (0.55-4.78); TOTAL 25(OH) VITAMIN D 42.3 NG/ML (20.0-100.0)
[2023-07-09 12:42] LABS: HEMOGLOBIN A1c 5.6 % (4.0-6.0)
== END ==
LOC: M SFHCPLAZ 08:04
PROVIDERS: ATTEND Internal Medicine Hematology
DX: E78.00 Pure hypercholesterolemia, unspecified (principal); Z12.11 Encounter for screening for malignant neoplasm of colon; Z79.899 Other long term (current) drug therapy

== ENCOUNTER → 2023-10-29 | Outpatient (REF) | payer MEDICARE, OTHER | LOC: M SFHCDERM 17:40 | PROVIDERS: ATTEND Physician Assistant | DX: L57.0 Actinic keratosis (principal) ==

== ENCOUNTER → 2023-11-11 | Outpatient (CLI) | payer MEDICARE, OTHER | LOC: M WHC 09:02 | PROVIDERS: ATTEND Internal Medicine Hematology | DX: Z12.31 Encounter for screening mammogram for malignant neoplasm of breast (principal) ==

== ENCOUNTER → 2024-01-01 | Outpatient (REF) | payer MEDICARE, OTHER ==
[2024-01-01 11:01] LABS: HEMATOCRIT 40.7 % (36.0-47.0); HEMOGLOBIN 13.2 g/dl (12.0-15.5); MEAN CORPUSCULAR HEMOGLOBIN 30.6 pg (27.0-33.0); MEAN CORPUSCULAR HGB CONC 32.4 g/dl (32.0-36.5); MEAN CORPUSCULAR VOLUME 94.4 fl (80.0-96.0); PLATELET COUNT, AUTOMATED 307 10^3/uL (150-450); RED BLOOD COUNT 4.31 10^6/uL (4.00-5.40); WHITE BLOOD COUNT 6.4 10^3/uL (4.0-10.0)
[2024-01-01 11:05] LABS: C REACTIVE PROTEIN QUANTITATIV < 0.40 MG/DL (<1.0)
[2024-01-01 11:06] LABS: ALBUMIN 3.7 G/DL (3.2-5.2); ALKALINE PHOSPHATASE 112 U/L (46-116); ALT/SGPT 22 U/L (7.0-40); AST/SGOT 19 U/L (<34); BILIRUBIN,TOTAL 0.7 MG/DL (0.3-1.2); BLOOD UREA NITROGEN 13 MG/DL (9-23); CALCIUM LEVEL 9.2 MG/DL (8.3-10.6); CARBON DIOXIDE LEVEL 30 MMOL/L (20-31); CHLORIDE LEVEL 109 MMOL/L (98-107); CHOLESTEROL LEVEL 161 MG/DL (<200); CHOLESTEROL RISK RATIO 3.51 (<5); CREATININE FOR GFR 0.67 MG/DL (0.55-1.30); GLOMERULAR FILTRATION RATE > 60.0 (>39); GLUCOSE, FASTING 97 MG/DL (74-106); HDL CHOLESTEROL 45.8 MG/DL (>40); LDL CHOLESTEROL 85.6 MG/DL (<100); NON-HDL-C 115.2 MG/DL; POTASSIUM SERUM 4.4 MMOL/L (3.5-5.1); SODIUM LEVEL 142 MMOL/L (136-145); TRIGLYCERIDES LEVEL 148 MG/DL (<150)
[2024-01-01 11:08] LABS: FREE T4 0.99 NG/DL (0.89-1.76); THYROID STIMULATING HORMONE 2.331 uIU/ML (0.55-4.78); TOTAL 25(OH) VITAMIN D 47.4 NG/ML (20.0-100.0)
[2024-01-01 11:09] LABS: VITAMIN B12 LEVEL 882 PG/ML (211-911)
[2024-01-01 11:24] LABS: HEMOGLOBIN A1c 5.5 % (4.0-6.0)
== END ==
LOC: M SFHCPLAZ 08:18
PROVIDERS: ATTEND Internal Medicine Hematology
DX: E78.00 Pure hypercholesterolemia, unspecified (principal); Z79.899 Other long term (current) drug therapy

== ENCOUNTER → 2024-01-29 | Outpatient (REF) | payer MEDICARE, OTHER | LOC: M SFHCDERM 17:45 | PROVIDERS: ATTEND Physician Assistant | DX: B07.9 Viral wart, unspecified (principal) ==

== ENCOUNTER → 2024-02-05 | Outpatient (CLI) | payer MEDICARE, OTHER | LOC: M WHC 09:56 | PROVIDERS: ATTEND Internal Medicine Hematology | DX: R13.12 Dysphagia, oropharyngeal phase (principal) ==

== ENCOUNTER → 2024-06-29 | Outpatient (CLI) | payer MEDICARE, OTHER | LOC: M RAD 12:35 | PROVIDERS: ATTEND Nurse Practitioner Family | DX: R06.02 Shortness of breath (principal) ==

== ENCOUNTER → 2025-02-09 | Outpatient (REF) | payer MEDICARE, OTHER ==
[2025-02-09 13:37] LABS: CHOLESTEROL LEVEL 240.0 MG/DL (<200); CHOLESTEROL RISK RATIO 4.66 (<5); LDL CHOLESTEROL 162.8 MG/DL (<100); NON-HDL-C 188.6 MG/DL; TRIGLYCERIDES LEVEL 129.0 MG/DL (<150)
== END ==
LOC: M LABDRAWC 11:59
PROVIDERS: ATTEND Internal Medicine
DX: E78.00 Pure hypercholesterolemia, unspecified (principal)

== ENCOUNTER → 2025-03-15 | Outpatient (REF) | payer MEDICARE, OTHER | LOC: M SFHCDERM 17:43 | PROVIDERS: ATTEND Dermatology | DX: L82.1 Other seborrheic keratosis (principal); L57.0 Actinic keratosis ==

== ENCOUNTER → 2025-03-28 | Outpatient (REF) | payer MEDICARE, OTHER | LOC: M SFHCDERM 17:24 | PROVIDERS: ATTEND Physician Assistant | DX: L08.9 Local infection of the skin and subcutaneous tissue, unspecified (principal) ==

== ENCOUNTER → 2025-03-29 | Outpatient (REF) | payer MEDICARE, OTHER ==
[2025-03-29 15:20] LABS: C REACTIVE PROTEIN QUANTITATIV < 0.50 MG/DL (<1.0); IRON (FE) 96 UG/DL (50-170); PERCENT SATURATION 31.1 % (13.2-45.0); RHEUMATOID FACTOR QUANT < 3.5 IU/ML (<14)
[2025-03-29 15:22] LABS: PROLACTIN 6.57 NG/ML; VITAMIN B12 LEVEL 957 PG/ML (211-911)
== END ==
LOC: M LAB REF 13:50
PROVIDERS: ATTEND Nurse Practitioner Family
DX: M25.50 Pain in unspecified joint (principal); R53.83 Other fatigue; L65.9 Nonscarring hair loss, unspecified